=== PATIENT | male | born 1980 | race Caucasian/White ===

== ENCOUNTER 2017-08-24 15:46 | Emergency (ER) | payer OTHER ==
--- NOTE | 2017-08-24 17:16 | UC ---
Throat Pain/Nasal Ernie HPI - HPI Summary HPI Summary: 37 year old male presents with complains of fever, chills and vomiting. - History of Current Complaint Stated Complaint: FLU LIKE SYMP Time Seen by Provider: 08/24/17 17:15 Hx Obtained From: Patient Onset/Duration: Sudden Onset Severity: Moderate - Allergies/Home Medications Allergies/Adverse Reactions: Allergies Allergy/AdvReac Type Severity Reaction Status Date / Time Latex Allergy Severe Swelling Verified 08/24/17 17:22 Of Face,Lips,& Throat Silver Sulfadiazine Allergy Intermediate Swelling/BU Verified 08/24/17 17:22 [From Cari] RNING Home Medications: Home Medications QUEtiapine TAB* [SEROquel TAB*] 25 mg PO QPM 08/24/17 [History Confirmed ] cloNIDine TAB* [Catapres 0.1 MG TAB*] 0.1 mg PO TID PRN 08/24/17 [History Confirmed 08/24/17] hydrOXYzine HCL TAB* [Atarax 25 MG TAB*] 25 mg PO TID PRN 08/24/17 [History Confirmed 08/24/17] PMH/Surg Hx/FS Hx/Imm Hx Previously Healthy: Yes - Surgical History Surgical History: None - Social History Alcohol Use: None Substance Use Type: Marijuana Substance Use Comment - Amount & Last Used: LAST TIME TODAY 10/23/2015 Smoking Status (MU): Heavy Every Day Tobacco Smoker Type: Cigarettes Amount Used/How Often: 1 PPD Length of Time of Smoking/Using Tobacco: 20 YEARS Have You Smoked in the Last Year: Yes Household Exposure Type: Cigarettes Review of Systems Constitutional: Negative Skin: Negative Eyes: Negative ENT: Dental Pain, Sore Throat, Nasal Discharge, Sinus Congestion, Sinus Pain/ Tenderness Respiratory: Shortness Of Breath, Cough Cardiovascular: Negative Gastrointestinal: Negative Genitourinary: Negative Motor: Negative Neurovascular: Negative Musculoskeletal: Negative Neurological: Negative Psychological: Negative All Other Systems Reviewed And Are Negative: Yes Physical Exam Triage Information Reviewed: Yes Vital Signs Reviewed: Yes Eye Exam: Normal ENT: Positive: Pharyngeal erythema, Nasal congestion Dental: Positive: Abscess @ Neck exam: Normal Neck: Positive: 1 Respiratory Exam: Normal Cardiovascular Exam: Normal Abdominal Exam: Normal Musculoskeletal Exam: Normal Neurological Exam: Normal Psychological Exam: Normal Skin Exam: Normal Throat Pain/Nasal Course/Dx - Differential Dx/Diagnosis Provider Diagnoses: dental abscess. vomitting. nausea Discharge - Discharge Plan Condition: Stable Disposition: HOME Prescriptions: Chlorhexidine MOUTHWASH 0.12%* [Peridex Mouth Wash 0.12%*] 15 ml MT TID #1 btl Magic M W2 Dawson/Maal/Nyst/Lido* 5 ml SWISH SPIT QID PRN #120 ml PRN Reason: Pain Penicillin VK TAB* [Penicillin VK 250 mg Tab*] 500 mg PO QID #40 tab Patient Education Materials: Dental Abscess (ED), Acute Nausea and Vomiting (ED ) Forms: *Work Release Referrals: Yaquelin Jaimes MD [Medical Doctor] - Lester Irvin MD [Primary Care Provider] -
[2017-08-24 17:22] VITALS: BP 132/90
== END 2017-08-24 18:10 | disposition home or self-care (01) ==
LOC: UCCORT 15:46
DX: K04.7 Periapical abscess without sinus (principal); R11.2 Nausea with vomiting, unspecified
CPT/HCPCS: 87502; 99212; G0463

== ENCOUNTER 2019-09-03 12:14 | Emergency (ER) | payer OTHER ==
[2019-09-03 13:04] VITALS: BP 158/93
[2019-09-03 13:33] LABS: Influenza A Molecular NEGATIVE (Negative); Influenza B Molecular NEGATIVE (Negative)
[2019-09-03] MEDS ORDERED: Albuterol 2.5 MG/3 ML NEB.SOL* (0.083%) INH ONE (13:41)
[2019-09-03] MEDS ORDERED: Ipratropium 0.5MG/2.5ML NEB* 0.5 MG/2.5 ML NEB.SOLN INH ONE (13:41)
--- NOTE | 2019-09-03 13:46 | UC ---
Respiratory Complaint HPI - HPI Summary HPI Summary: 39 yo male with a hx of IVDA (clean x 2 yrs) presents with a one week hx of cough/left sided CP/fever and chills Hx bacteremia yrs ago ( due to his intravenous drug use) and hep C Has RA Smoker Has had nasal congestion and occiptal SORENSEN with is positional x 3 weeks - History of Current Complaint Chief Complaint: UCRespiratory Stated Complaint: COUGH/ST Time Seen by Provider: 09/03/19 13:16 Hx Obtained From: Patient Onset/Duration: Gradual Onset, Lasting Days - 7 Timing: Constant Severity Initially: Moderate Severity Currently: Mild Pain Intensity: 2 Pain Scale Used: 0-10 Numeric Character: Cough: Productive Aggravating Factors: Deep Breaths, Recumbent Position Alleviating Factors: Nothing Associated Signs And Symptoms: Positive: Fever, Chills, Pleuritic Chest Pain - left sided, Nasal Congestion, Sinus Discomfort. Negative: Calf Pain, Calf Swelling, Edema, URI, Hoarseness - Allergies/Home Medications Allergies/Adverse Reactions: Allergies Allergy/AdvReac Type Severity Reaction Status Date / Time latex Allergy Swelling Verified 09/03/19 12:53 Of Face,Lips,& Throat silver sulfadiazine Allergy Swelling Verified 09/03/19 12:53 [From Silvadene] Home Medications: Home Medications Albuterol HFA INHALER* [Ventolin HFA Inhaler*] 1 - 2 puff INH Q4H PRN 09/03/19 [ History Confirmed 09/03/19] Buprenorp/Nalox 8-2 MG SL TAB [Suboxone 8-2 mg SL TAB*] 1 tab.sl SL TID [History Confirmed 09/03/19] PMH/Surg Hx/FS Hx/Imm Hx Previously Healthy: Yes Other History Of: Hepatitis C - Surgical History Surgical History: None - Family History Known Family History: Positive: Hypertension - Social History Alcohol Use: None Substance Use Type: None Substance Use Comment - Amount & Last Used: LAST TIME TODAY 10/23/2015 Smoking Status (MU): Heavy Every Day Tobacco Smoker Type: Cigarettes Amount Used/How Often: 1 PPD Length of Time of Smoking/Using Tobacco: 20 YEARS Have You Smoked in the Last Year: Yes Household Exposure Type: Cigarettes Cessation Counseling: Patient Advised to Stop Review of Systems All Other Systems Reviewed And Are Negative: Yes Constitutional: Positive: Fever, Chills, Fatigue Skin: Positive: Negative Eyes: Positive: Negative ENT: Positive: Negative Respiratory: Positive: Cough Cardiovascular: Positive: Chest Pain Genitourinary: Positive: Negative Motor: Positive: Negative Neurovascular: Positive: Negative Musculoskeletal: Positive: Negative Neurological: Positive: Negative Psychological: Positive: Negative Physical Exam Triage Information Reviewed: Yes Appearance: Well-Appearing, No Pain Distress, Well-Nourished Vital Signs: Initial Vital Signs Temp 99.1 F 09/03/19 12:57 Pulse 89 09/03/19 12:57 Resp 16 09/03/19 12:57 BP 158/93 09/03/19 12:57 Pulse Ox 97 09/03/19 12:57 Vital Signs Reviewed: Yes Eyes: Positive: Conjunctiva Clear ENT: Positive: Normal ENT inspection, Hearing grossly normal, Pharynx normal, Nasal congestion, TMs normal, Uvula midline. Negative: Tonsillar swelling, Tonsillar exudate, Trismus, Muffled voice, Hoarse voice Dental Exam: Other - dentures Neck: Positive: Supple, Nontender, No Lymphadenopathy Respiratory: Positive: Crackles - Left base, Wheezing - left side Cardiovascular: Positive: RRR, No Murmur Abdomen Description: Positive: Nontender, No Organomegaly, Soft. Negative: CVA Tenderness (R), CVA Tenderness (L) Bowel Sounds: Positive: Present Musculoskeletal: Positive: ROM Intact, No Edema Neurological: Positive: Alert Psychological Exam: Normal Skin Exam: Normal Diagnostics - Radiology No standard instances Radiology Interpretation Completed By: Radiologist Summary of Radiographic Findings: CXR : NAD Re-Evaluation - Re-Evaluation First Eval Re-Evaluation Time: 14:15 Change: Improved - decreased wheezing Respiratory Course/Dx - Differential Dx/Diagnosis Provider Diagnosis: Bronchitis with bronchospasm, Elevated BP without diagnosis of hypertension, Smoker, Sinusitis Discharge ED - Sign-Out/Discharge Documenting (check all that apply): Patient Departure All imaging exams completed and their final reports reviewed: No Studies - Discharge Plan Condition: Stable Disposition: HOME Patient Education Materials: Acute Bronchitis (ED) Referrals: [facility] [place] [facility]IAN REFERRAL [Outside] (if unable to find a doctor call this number) - Billing Disposition and Condition Condition: STABLE Disposition: Home
[2019-09-03] MEDS ORDERED: predniSONE TAB* 20 MG PO ONE (14:15)
== END 2019-09-03 14:29 | disposition home or self-care (01) ==
LOC: UCCORT 12:14
DX: J40 Bronchitis, not specified as acute or chronic (principal); J32.9 Chronic sinusitis, unspecified; J98.01 Acute bronchospasm; R03.0 Elevated blood-pressure reading, without diagnosis of hypertension; F17.210 Nicotine dependence, cigarettes, uncomplicated; Z91.040 Latex allergy status; Z88.8 Allergy status to other drugs, medicaments and biological substances
CPT/HCPCS: 71046; 99212; G0463; J7512